=== PATIENT | male | born 1990 | race Caucasian/White ===

== ENCOUNTER 2016-09-04 12:32 | Emergency (ER) | payer SELFPAY ==
[~2016-09-04] VITALS: Ht 167.6 cm; Wt 85.0 kg
[~2016-09-04 12:32] MED LIST: IBUP800T23 PO
[2016-09-04 12:33] VITALS: BP 134/82; PULSE 88; RESP 20; TEMP 97.7; O2SAT 100
[2016-09-04] MEDS ORDERED: IBUPROFEN 800 MG TAB PO ONE (12:45)
[2016-09-04] MEDS ORDERED: METHOCARBAMOL 500 MG TAB PO ONE (12:45)
--- NOTE | 2016-09-04 12:45 | PD ---
HPI Chief Complaint: Skin Problem Time Seen by Provider: 12:45 Travel History International Travel<30 days: No Contact w/Intl Traveler<30days: No Traveled to known affect area: No History of Present Illness HPI 26-year-old male presents to the emergency department with 2 complaints. His first complaint is left hand pain and swelling since yesterday. He says he may have gotten bit by a bug. He doesn't know if he may have injured it somehow. 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 He denies paresthesias, loss of sensation. Reports decreased range of motion of the fingers and wrist secondary to swelling. Denies fever, chills, nausea, vomiting. Does not know if his up-to-date on his tetanus vaccination. His second complaint is left groin pain for the past few days. It is worse when he walks. He denies paresthesias, loss of sensation, decreased range of motion, decreased strength to the affected extremity. Has not taken any medication or drainage was to alleviate his symptoms. No known allergies. Denies significant past medical history. No other modifying factors or associated signs and symptoms. PFSH Past Medical History Depression: Yes Diminished Hearing: No Social History Alcohol Use: Yes Tobacco Use: Yes (quit 1 1/2 yrs ago smoked cigs 1 ppd for 4-5 yrs now ecigs) Substance Use: No Allergies-Medications (Allergen,Severity, Reaction): Coded Allergies: No Known Allergies (Verified , 03/27/15) Reported Meds & Prescriptions Reported Meds & Active Scripts Active Robaxin (Methocarbamol) 500 Mg Tab 500 Mg PO QID PRN Bactrim DS (Sulfamethoxazole-Trimethoprim) 800-160 Mg Tab 1 Tab PO BID 10 Days Keflex (Cephalexin) 500 Mg Cap 500 Mg PO Q6H 10 Days Ibuprofen 800 Mg Tab 800 Mg PO Q6HR PRN Reported Buprenorphine (Buprenorphine HCl) 8 Mg Subl 8 Mg SL BID Review of Systems Except as stated in HPI: all other systems reviewed are Neg Physical Exam Narrative GENERAL: Well-nourished, well-developed male patient, in no acute distress SKIN: Warm and dry. HEAD: Atraumatic. Normocephalic. EYES: Pupils equal and round. No scleral icterus. No injection or drainage. ENT: Mucosa pink and moist. Airway patent. NECK: Trachea midline. CARDIOVASCULAR: Regular rate. RESPIRATORY: No accessory muscle use. GASTROINTESTINAL: Flat. MUSCULOSKELETAL: Left hand and distal forearm is edematous and mildly erythematous; all fingers with decreased range of motion secondary to swelling; reproducible pain to the dorsal aspect of the hand; multiple small scratches noted to the dorsal aspect of the hand and forearm. Left upper extremity is supple and non-tense with 2+ radial pulse and sensory intact. Left hip is with full range of motion; no tenderness on abduction; no tenderness elicited on palpation to the left groin area. Left lower extremity supple and non-tense with 2+ pedal pulse and sensory intact and without erythema or edema. No obvious deformities. No clubbing. No cyanosis. No edema. NEUROLOGICAL: Awake and alert. Oriented 3. No obvious cranial nerve deficits. Motor grossly within normal limits. Normal speech. PSYCHIATRIC: Appropriate mood and affect; insight and judgment normal. Data Data Last Documented VS Vital Signs Date Time Temp Pulse Resp B/P Pulse Ox O2 Delivery O2 Flow Rate FiO2 09/04/16 12:33 97.7 88 20 134/82 100 Room Air Orders Hand, Complete ([id number]) (09/04/16 12:45) Ibuprofen (Motrin) (09/04/16 12:45) Methocarbamol (Robaxin) (09/04/16 12:45) Tetanus/Diphtheria Tox Adult (Tetanus/Di (09/04/16 13:00) MDM Medical Decision Making Medical Screen Exam Complete: Yes Emergency Medical Condition: Yes Medical Record Reviewed: Yes Differential Diagnosis Groin strain, cellulitis, hand fracture Narrative Course 26-year-old male physical exam consistent with possible cellulitis to the left hand/arm and left grown strain. Unknown injury. Tetanus updated in the ER. Ibuprofen and Robaxin administered in the ER. Left hand x-ray ordered. 1447: Left hand x-ray concludes Marked soft tissue swelling otherwise negative. Patient will be treated for suspected cellulitis. Ibuprofen, Robaxin , Bactrim, Keflex prescribed for home. Patient verbalizes understanding and agreement with treatment plan. Patient is medically cleared and stable for discharge. Discussed reasons to return to the emergency department. Instructed patient to follow up with primary care provider. Patient agrees with treatment plan. The patients vital signs are stable and the patient is stable for outpatient follow-up and treatment. Patient discharged home, stable and in no acute distress. Diagnosis Primary Impression: Cellulitis of left hand Additional Impression: Groin strain Qualified Code: S76.212A - Groin strain, left, initial encounter Referrals: Primary Care Physician Patient Instructions: Cellulitis (ED), General Instructions, Groin Strain (ED) Departure Forms: Tests/Procedures, Work Release Enter return to work date: Sep 07, 2016 Additional Instructions: Complete full course of antibiotics Warm compresses to the affected area Keep area clean and dry Ibuprofen or Tylenol as directed and as needed for pain and inflammation Follow-up with primary care provider Return to emergency department immediately with worsening of symptoms Med/Other Pt SpecificInfo: Prescription(s) given Scripts Methocarbamol (Robaxin)500 Mg [id number] Mg PO QID PRN (MUSCLE SPASM) #30 TAB Ref 0 Prov:Emma Eli 09/04/16 Sulfamethoxazole-Trimethoprim (Bactrim DS)800-160 Mg Tab1 Tab PO BID 10 Days Ref 0 Prov:Emma Eli 09/04/16 Cephalexin (Keflex)500 Mg [id number] Mg PO Q6H 10 Days Ref 0 Prov:Emma Eli 09/04/16 Ibuprofen 800 Mg [id number] Mg PO Q6HR PRN (PAIN) #30 TAB Ref 0 Prov:Emma Eli 09/04/16 Disposition: 01 DISCHARGE HOME Condition: Stable Emma Eli Sep 04, 2016 12:45
[2016-09-04] MEDS ORDERED: TETANUS/DIPHTHERIA TOXOID ADULT 0.5 ML VIAL IM ONE (13:00)
[2016-09-04] MEDS ORDERED: BUPR8SUB SL (13:12)
[2016-09-04] MEDS ORDERED: IBUP800T23 PO (13:18)
[2016-09-04] MEDS ORDERED: CEPH-460 PO (13:18)
[2016-09-04] MEDS ORDERED: BACT800T5 PO (13:18)
[2016-09-04] MEDS ORDERED: ROBA500T PO (13:18)
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
== END 2016-09-04 14:05 | disposition home or self-care (01) ==
LOC: NEPB 12:32
DX: L03.114 Cellulitis of left upper limb (principal); S76.212A Strain of adductor muscle, fascia and tendon of left thigh, initial encounter; Z23 Encounter for immunization; Z72.0 Tobacco use; X58.XXXA Exposure to other specified factors, initial encounter
CPT/HCPCS: 73130; 90471; 90714

== ENCOUNTER 2017-01-26 16:42 | Emergency (ER) | payer OTHER ==
[~2017-01-26] VITALS: Ht 167.6 cm; Wt 85.0 kg
[~2017-01-26 16:42] MED LIST changes: +BACT800T5 PO; +BUPR8SUB SL; +CEPH-460 PO; +ROBA500T PO
[2017-01-26 16:59] VITALS: BP 129/69; PULSE 87; RESP 14; O2SAT 98
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
[2017-01-26] MEDS ORDERED: DIPHTH/TETANUS/ACEL PERTUSSIS (BOOSTER) 0.5 ML VIAL/PFS IM ONE (17:30)
[2017-01-26] MEDS ORDERED: SODIUM CHLORIDE 0.9% FLUSH 10 ML FLUSH IVF PRN (17:30)
[2017-01-26 18:12] VITALS: O2SAT 100
[2017-01-26 18:19] LABS: AUTOMATED NEUTROPHIL # 3.2 TH/MM3 (1.8-7.7); BASOPHIL # 0.1 TH/MM3 (0-0.2); EOSINOPHIL # 0.5 TH/MM3 (0-0.4); EOSINOPHIL % 7.9 % (0.0-4.0); HEMATOCRIT 39.7 % (39.0-51.0); HEMO FLAGS DIFF FINAL; MEAN CELL VOLUME 85.6 FL (80.0-100.0); MEAN CORPUSCULAR HEMOGLOBIN 30.6 PG (27.0-34.0); MEAN CORPUSCULAR HGB CONC 35.7 % (32.0-36.0); MONO % 8.6 % (0.0-8.0); NEUT % 50.5 % (16.0-70.0); PLATELET COUNT 227 TH/MM3 (150-450); RED BLOOD COUNT 4.63 MIL/MM3 (4.50-5.90); RED CELL DISTRIBUTION WIDTH 13.5 % (11.6-17.2); WHITE BLOOD COUNT 6.4 TH/MM3 (4.0-11.0)
[2017-01-26 18:33] LABS: PROTHROMBIN TIME - PATIENT 11.6 SEC (9.8-11.6)
[2017-01-26 18:34] LABS: APTT (PATIENT) 34.3 SEC (24.3-30.1)
[2017-01-26 18:42] LABS: ALCOHOL LESS THAN 3 MG/DL (0-5); ANION GAP 4 MEQ/L (5-15); BICARBONATE 32.2 MEQ/L (21.0-32.0); BLOOD UREA NITROGEN 13 MG/DL (7-18); CHLORIDE 106 MEQ/L (98-107); GLOMERULAR FILTRATION RATE 87 ML/MIN (>89); POTASSIUM 3.9 MEQ/L (3.5-5.1); SODIUM (NA) 142 MEQ/L (136-145)
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
[2017-01-26] MEDS ORDERED: IOHEXOL 350 MG/ML 10 ML VIAL (for RAD DIAG) IV ONE (19:06)
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
[2017-01-26 23:18] VITALS: BP 113/63; PULSE 84; RESP 18; O2SAT 97
[2017-01-27] MEDS ORDERED: SUDO60TA2 PO (00:43)
[2017-01-27] MEDS ORDERED: AMOX500C PO (00:43)
[2017-01-27] MEDS ORDERED: AFRI0.052 EACH NARE (00:43)
== END 2017-01-27 07:06 | disposition home or self-care (01) ==
LOC: NEPD 16:42
DX: S02.2XXA Fracture of nasal bones, initial encounter for closed fracture (principal); S02.40DA Maxillary fracture, left side, initial encounter for closed fracture; S00.81XA Abrasion of other part of head, initial encounter; F41.9 Anxiety disorder, unspecified; F32.9 Major depressive disorder, single episode, unspecified; V43.52XA Car driver injured in collision with other type car in traffic accident, initial encounter; Z72.0 Tobacco use; Z23 Encounter for immunization
CPT/HCPCS: 70450; 70486; 71010; 71260; 72125; 72170; 74177; 80048; 80307; 85025; 85610; 85730; 86850; 86900; 86901; 90471; 90715; 99285; P9612; Q9967

== ENCOUNTER 2017-05-16 13:04 | Emergency (ER) | payer SELFPAY ==
[~2017-05-16] VITALS: Ht 167.6 cm; Wt 67.2 kg
[~2017-05-16 13:04] MED LIST changes: +AFRI0.052 EACH NARE; +AMOX500C PO; -BACT800T5 PO; -BUPR8SUB SL; -CEPH-460 PO; -IBUP800T23 PO; -ROBA500T PO; +SUDO60TA2 PO
[2017-05-16 13:41] VITALS: BP 128/54; PULSE 56; RESP 16; TEMP 98.6; O2SAT 98
[2017-05-16] MEDS ORDERED: CEPH-460 PO (15:11)
[2017-05-16] MEDS ORDERED: BACT800T5 PO (15:11)
--- NOTE | 2017-05-16 15:18 | PD ---
HPI Chief Complaint: Skin Problem Time Seen by Provider: 15:02 Travel History International Travel<30 days: No Contact w/Intl Traveler<30days: No Traveled to known affect area: No History of Present Illness HPI 26-year-old male presents to the emergency room for evaluation of 2 separate skin complaints on bilateral hands. They started about the same time, 4 days ago. Patient reports in his right third finger he cut himself on middle of the wound just kept getting larger and more painful. Last tetanus was 2 years ago. On his left fifth finger, he noticed a small area of swelling near the fingernail became more painful and swollen throughout the day. Denies fevers, chills, nausea, vomiting, and streaking. No chronic medical conditions or daily medications. PFSH Past Medical History Anxiety: Yes Depression: Yes Diminished Hearing: No Influenza Vaccination: No ?: Not Social History Alcohol Use: Yes Tobacco Use: Yes Substance Use: No Allergies-Medications (Allergen,Severity, Reaction): Coded Allergies: No Known Allergies (Verified Adverse Reaction, Unknown, 05/16/17) Reported Meds & Prescriptions Reported Meds & Active Scripts Active Bactrim DS (Sulfamethoxazole-Trimethoprim) 800-160 Mg Tab 1 Tab PO BID Keflex (Cephalexin) 500 Mg Capsule 500 Mg PO Q6H 10 Days Review of Systems Except as stated in HPI: all other systems reviewed are Neg Physical Exam Narrative GENERAL: Well-nourished, well-developed male in no acute distress. Afebrile. Ambulatory. SKIN: Focused skin assessment warm/dry. There is an indurated area in the left fifth finger over the lateral nailfold which measures about 2 cm in diameter. It is fluctuant but there is no pointing or drainage. There is a zone of inflammation around it but no lymphangitis. There is a impetiginized wound to the right third finger on the dorsal aspect with surrounding inflammation but no lymphangitis. HEAD: Normocephalic. EYES: No scleral icterus. No injection or drainage. NECK: Supple, trachea midline. No JVD or lymphadenopathy. CARDIOVASCULAR: Regular rate and rhythm without murmurs, gallops, or rubs. RESPIRATORY: Breath sounds equal bilaterally. No accessory muscle use. MUSCULOSKELETAL: No cyanosis, or edema. Full range motion of bilateral hands. Data Data Last Documented VS Vital Signs Date Time Temp Pulse Resp B/P (MAP) Pulse Ox O2 Delivery O2 Flow Rate FiO2 05/16/17 13:41 98.6 56 16 128/54 (78) 98 MDM Medical Decision Making Medical Screen Exam Complete: Yes Emergency Medical Condition: Yes Medical Record Reviewed: Yes Differential Diagnosis Abscess, paronychia, cellulitis, impetigo Narrative Course 26-year-old male presents to the emergency room for evaluation of 2 separate skin complaints was started at the same time. He has a paronychia of the left fifth finger and impetigo of the right third finger. No systemic signs of infection. No loss of range of motion. The paronychia was drained, see procedure for details. Patient discharged with Bactrim and Keflex and told to follow-up with the PCP return for worsening symptoms. He understands and agrees to plan. Procedures Procedure Narrative INCISION AND DRAINAGE OF ABSCESS: The area was prepped and was sterilely draped. A number 11 scalpel was used to make a 0.5 cm incision across the area of the abscess. The abscess was drained. Sterile dressing applied. Diagnosis Primary Impression: Paronychia of finger of left hand Additional Impression: Impetigo Referrals: Primary Care Physician Additional Instructions: Rest and drink plenty of fluids. Take Bactrim as directed, until gone. Take Keflex as directed, until gone. Return to the emergency room in 2 days to have packing removed. If it falls out before, this is okay. Follow up with a primary care physician. Return to emergency room for worsening symptoms, as discussed. Scripts Sulfamethoxazole-Trimethoprim (Bactrim DS) 800-160 Mg Tab 1 TAB PO BID for Infection, #20 TAB 0 Refills Prov: Tung Lanza MD 05/16/17 Cephalexin (Keflex) 500 Mg Capsule 500 MG PO Q6H for Infection for 10 Days, #40 CAP 0 Refills Prov: Tung Lanza MD 05/16/17 Disposition: 01 DISCHARGE HOME Condition: Stable Sana Nance May 16, 2017 15:18
== END 2017-05-16 15:45 | disposition home or self-care (01) ==
LOC: PHEFT 13:04
DX: L03.012 Cellulitis of left finger (principal); L01.00 Impetigo, unspecified
CPT/HCPCS: 10060

== ENCOUNTER 2018-04-22 22:46 | Inpatient (IN) ==
[2018-04-22] MEDS ORDERED: Morphine Sulfate Inj 2 MG/ML Vial ONE ×2 (22:55)
[2018-04-22] MEDS ORDERED: Diphtheria/Tetanus/Pertussis Vaccine Inj 0.5 ML Syringe IM ONE (22:55)
[2018-04-22] MEDS ORDERED: ceFAZolin 2 GM Premix Inj 2 GM/50 ML PIGGYBACK IV.SIG ONE (22:55)
[2018-04-22] MEDS ORDERED: Etomidate Inj 40 MG/20 ML Vial IV.PUSH ONE (22:57)
[2018-04-22] MEDS ORDERED: Propofol 1000 mg/100 ml Inj 1,000 MG/100 ML BOTTLE ONE (22:57)
[2018-04-22] MEDS ORDERED: NEED HT & WT OTHER SCH (23:00)
[2018-04-22 23:13] LABS: Baso # (Auto) 0.1 th/mm3 (0.0-0.2); Baso % (Auto) 0.7 % (0.0-2.0); Eos # (Auto) 0.4 th/mm3 (0.0-0.4); Eos % (Auto) 3.7 % (0.0-4.0); Hematocrit 45.4 % (39.0-51.0); Hemoglobin 15.6 gm/dL (13.0-17.0); Lymph # (Auto) 4.1 th/mm3 (1.0-4.8); Lymph % (Auto) 38.6 % (9.0-44.0); Mean Corpuscular HGB Conc 34.4 % (32.0-36.0); Mean Corpuscular Hemoglobin 30.7 pg (27.0-34.0); Mean Corpuscular Volume 89.2 fL (80.0-100.0); Mean Platelet Volume 8.9 fL (7.0-11.0); Mono # (Auto) 0.6 th/mm3 (0.0-0.9); Mono % (Auto) 5.8 % (0.0-8.0); Neut # (Auto) 5.5 th/mm3 (1.8-7.7); Neut % (Auto) 51.2 % (16.0-70.0); Platelet Count 333 th/mm3 (150-450); Red Blood Count 5.09 mil/mm3 (4.50-5.90); Red Cell Distribution Width 13.9 % (11.6-17.2); White Blood Count 10.7 th/mm3 (4.0-11.0)
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
[2018-04-22 23:26] LABS: Activated Partial Thrombo Time 27.8 sec (23.4-31.7); INR 1.1 Ratio
[2018-04-22] MEDS ORDERED: Bisacodyl 10 MG Supp RECTAL PRN (23:26)
[2018-04-22] MEDS ORDERED: Post-op Orders (for Pharmacy) OTHER ONE (23:26)
[2018-04-22] MEDS ORDERED: Naloxone Inj 0.4 MG/ML Vial IV.PUSH PRN (23:26)
[2018-04-22] MEDS ORDERED: Sod Chloride 0.9% Inj 1,000 ML IV.SIG SCH (23:30)
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
[2018-04-22] MEDS ORDERED: Pantoprazole Inj 40 MG Vial IV.PUSH SCH (23:45)
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
[2018-04-22] MEDS ORDERED: Succinylcholine Inj 200 MG/10 ML Vial ONE (23:49)
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
--- NOTE | 2018-04-22 23:56 | XR ---
EXAM DATE: 04/22/2018 11:37 PM EDT AGE/SEX: 89 years / Male INDICATIONS: Post intubation CLINICAL DATA: This is the patient's initial encounter. Patient reports that signs and symptoms have been present for 1 day and indicates a pain score of Nonresponsive. MEDICAL/SURGICAL HISTORY: Non-responsive. Non-responsive. COMPARISON: C, CHEST 1V SINGLE AP, 04/22/2018. . FINDINGS: Endotracheal tube is present in good position with tip 5 cm above the kelsey. Nasogastric tube descen ds into the stomach. Lungs remain symmetrically aerated and grossly clear. Cardiac contours are satis factory. CONCLUSION: Satisfactory support line and tube positioning. Electronically signed by: Neeraj Shah MD 04/22/2018 11:54 PM EDT
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
--- NOTE | 2018-04-23 00:35 | XR ---
EXAM DATE: 04/22/2018 11:41 PM EDT AGE/SEX: 89 years / Male INDICATIONS: Post reduction left hip CLINICAL DATA: This is the patient's initial encounter. Patient reports that signs and symptoms have been present for 1 day and indicates a pain score of Nonresponsive. MEDICAL/SURGICAL HISTORY: Non-responsive. Non-responsive. COMPARISON: [facility] [place], PELVIS AP 1V, 04/22/2018. . FINDINGS: Interval relocation of dislocated left hip. Otherwise stable appearance CONCLUSION: Left hip relocated Electronically signed by: Neeraj Shah MD 04/23/2018 12:34 AM EDT
[2018-04-23 00:37] LABS: ABG Base Excess 1.1 mmol/L (-2-2); ABG PCO2 46 mmHg (38-42); ABG PO2 139 mmHg (61-120)
[2018-04-23] MEDS: fentaNYL 10 mcg/mL Premix Drip 2,500 MCG/250 ML BAG IV.SIG PRN (00:46)
[2018-04-23] MEDS: Sod Chloride 0.9% Inj 1,000 ML IV.CONT SCH ×2 (00:46→06:26)
[2018-04-23 05:13] LABS: Baso # (Auto) 0.1 th/mm3 (0.0-0.2); Baso % (Auto) 0.5 % (0.0-2.0); Eos # (Auto) 0.2 th/mm3 (0.0-0.4); Eos % (Auto) 1.9 % (0.0-4.0); Hematocrit 41.3 % (39.0-51.0); Hemoglobin 14.7 gm/dL (13.0-17.0); Lymph # (Auto) 1.3 th/mm3 (1.0-4.8); Lymph % (Auto) 13.7 % (9.0-44.0); Mean Corpuscular HGB Conc 35.6 % (32.0-36.0); Mean Corpuscular Hemoglobin 31.2 pg (27.0-34.0); Mean Corpuscular Volume 87.4 fL (80.0-100.0); Mean Platelet Volume 8.9 fL (7.0-11.0); Mono # (Auto) 0.9 th/mm3 (0.0-0.9); Mono % (Auto) 10.1 % (0.0-8.0); Neut # (Auto) 6.9 th/mm3 (1.8-7.7); Neut % (Auto) 73.8 % (16.0-70.0); Platelet Count 248 th/mm3 (150-450); Red Blood Count 4.72 mil/mm3 (4.50-5.90); Red Cell Distribution Width 13.7 % (11.6-17.2); White Blood Count 9.3 th/mm3 (4.0-11.0)
[2018-04-23] MEDS: Propofol 1000 mg/100 ml Inj 1,000 MG/100 ML BOTTLE IV.CONT PRN ×2 (05:23→17:05)
[2018-04-23 05:36] LABS: Calcium 8.6 mg/dL (8.5-10.1); Carbon Dioxide 29.8 meq/L (21.0-32.0); Potassium 3.7 meq/L (3.5-5.1)
[2018-04-23 06:15] LABS: ABG Base Excess 1.2 mmol/L (-2-2); ABG PCO2 44 mmHg (38-42); ABG PO2 186 mmHg (61-120)
[2018-04-23] MEDS ORDERED: Lidocaine 1%/Epinephrine 1:100,000 Inj 30 ML Vial ONE (07:59)
[2018-04-23] MEDS ORDERED: Thrombin Topical Soln 5,000 UNIT Vial TOPICAL ONE (07:59)
[2018-04-23] MEDS ORDERED: Gelatin Size 100 Topical Foam ONE (08:00)
[2018-04-23] MEDS ORDERED: ceFAZolin 1 GM Premix Inj 1 GM/50 ML FROZ.PIGGY IV.SIG ONE (08:46)
[2018-04-23] MEDS ORDERED: Senna/Docusate Sodium 8.6/50 MG Tablet PO SCH (09:00)
[2018-04-23] MEDS ORDERED: Bisacodyl 10 MG Supp RECTAL PRN (10:00)
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
[2018-04-23] MEDS ORDERED: Morphine Sulfate Inj 2 MG/ML Vial IV.PUSH PRN (11:00)
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
[2018-04-23] MEDS: Oral Hygiene Kit OROPHARYNG SCH ×2 (12:44→17:45)
[2018-04-23] MEDS: Chlorhexidine 0.12% Oral Kit 15 ML UDC OROPHARYNG SCH ×2 (12:44→22:32)
[2018-04-23] MEDS: ceFAZolin 2 GM Premix Inj 2 GM/50 ML PIGGYBACK IV.SIG SCH (17:45)
[2018-04-23] MEDS: Senna/Docusate Sodium 8.6/50 MG Tablet PO SCH (21:09)
[2018-04-24] MEDS: Oral Hygiene Kit OROPHARYNG SCH ×2 (00:20→06:56)
[2018-04-24] MEDS: fentaNYL 10 mcg/mL Premix Drip 2,500 MCG/250 ML BAG IV.SIG PRN (00:25)
[2018-04-24] MEDS: ceFAZolin 2 GM Premix Inj 2 GM/50 ML PIGGYBACK IV.SIG SCH ×2 (02:00→08:37)
[2018-04-24] MEDS: Propofol 1000 mg/100 ml Inj 1,000 MG/100 ML BOTTLE IV.CONT PRN (02:43)
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
[2018-04-24 05:20] LABS: Calcium 8.5 mg/dL (8.5-10.1); Carbon Dioxide 24.7 meq/L (21.0-32.0); Potassium 4.2 meq/L (3.5-5.1)
[2018-04-24 05:43] LABS: ABG Base Excess 0.8 mmol/L (-2-2); ABG PCO2 44 mmHg (38-42); ABG PO2 156 mmHg (61-120)
[2018-04-24 07:46] LABS: Baso % (Auto) 0.4 % (0.0-2.0); Eos # (Auto) 0.1 th/mm3 (0.0-0.4); Eos % (Auto) 1.4 % (0.0-4.0); Hematocrit 38.8 % (39.0-51.0); Hemoglobin 13.4 gm/dL (13.0-17.0); Lymph # (Auto) 1.7 th/mm3 (1.0-4.8); Lymph % (Auto) 23.1 % (9.0-44.0); Mean Corpuscular HGB Conc 34.6 % (32.0-36.0); Mean Corpuscular Hemoglobin 31.5 pg (27.0-34.0); Mean Corpuscular Volume 90.9 fL (80.0-100.0); Mean Platelet Volume 9.2 fL (7.0-11.0); Mono # (Auto) 0.8 th/mm3 (0.0-0.9); Mono % (Auto) 10.7 % (0.0-8.0); Neut # (Auto) 4.9 th/mm3 (1.8-7.7); Neut % (Auto) 64.4 % (16.0-70.0); Platelet Count 237 th/mm3 (150-450); Red Blood Count 4.27 mil/mm3 (4.50-5.90); Red Cell Distribution Width 14.1 % (11.6-17.2); White Blood Count 7.5 th/mm3 (4.0-11.0)
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
[2018-04-24] MEDS: Senna/Docusate Sodium 8.6/50 MG Tablet PO SCH ×2 (08:38→20:09)
[2018-04-24] MEDS: Chlorhexidine 0.12% Oral Kit 15 ML UDC OROPHARYNG SCH (08:38)
--- NOTE | 2018-04-24 09:21 | P.PNNS ---
Subjective Interval history: Patient went to the OR yesterday for debridement and elevation of open skull fracture. No acute events overnight. When sedation is held, he becomes agitated. Physical Exam Vital signs: Vital Signs 04/23/18 10:39 04/23/18 10:48 04/23/18 11:00 Temperature Pulse Rate 96 H 101 H Respiratory Rate 15 Blood Pressure Pulse Oximetry 100 100 04/23/18 11:21 04/23/18 11:30 04/23/18 11:45 Temperature Pulse Rate 102 H 104 H 108 H Respiratory Rate 112 H 15 14 Blood Pressure 128/79 127/76 131/76 Pulse Oximetry 100 100 100 04/23/18 12:00 04/23/18 12:15 04/23/18 12:30 Temperature 100.2 F H Pulse Rate 107 H 107 H 104 H Respiratory Rate 14 14 21 Blood Pressure 134/76 126/76 123/75 Pulse Oximetry 100 100 100 04/23/18 12:45 04/23/18 13:00 04/23/18 13:14 Temperature Pulse Rate 106 H 107 H Respiratory Rate 14 14 14 Blood Pressure 126/76 122/76 Pulse Oximetry 100 100 100 04/23/18 13:15 04/23/18 13:30 04/23/18 13:45 Temperature Pulse Rate 108 H 109 H 110 H Respiratory Rate 14 15 21 Blood Pressure 118/76 116/72 122/74 Pulse Oximetry 100 100 100 04/23/18 14:00 04/23/18 14:15 04/23/18 14:30 Temperature Pulse Rate 110 H 110 H 111 H Respiratory Rate 42 H 44 H 36 H Blood Pressure 122/74 123/76 124/72 Pulse Oximetry 100 100 100 04/23/18 14:45 04/23/18 15:00 04/23/18 15:15 Temperature Pulse Rate 110 H 111 H 112 H Respiratory Rate 34 H 31 H 26 H Blood Pressure 122/71 124/73 123/74 Pulse Oximetry 100 100 100 04/23/18 15:30 04/23/18 15:45 04/23/18 16:00 Temperature 101.1 F H Pulse Rate 114 H 114 H 114 H Respiratory Rate 31 H 28 H 35 H Blood Pressure 123/74 120/73 125/72 Pulse Oximetry 100 100 100 04/23/18 16:15 04/23/18 16:30 04/23/18 16:45 Temperature Pulse Rate 116 H 117 H 113 H Respiratory Rate 15 21 15 Blood Pressure 124/74 125/79 124/80 Pulse Oximetry 100 100 100 04/23/18 17:00 04/23/18 17:11 04/23/18 17:15 Temperature Pulse Rate 116 H 116 H 117 H Respiratory Rate 14 14 14 Blood Pressure 128/79 128/84 Pulse Oximetry 100 100 100 04/23/18 17:30 04/23/18 17:45 04/23/18 18:00 Temperature Pulse Rate 117 H 117 H 118 H Respiratory Rate 15 15 15 Blood Pressure 130/78 134/73 130/74 Pulse Oximetry 100 100 100 04/23/18 18:15 04/23/18 18:30 04/23/18 18:45 Temperature Pulse Rate 120 H 117 H 118 H Respiratory Rate 18 15 14 Blood Pressure 135/80 124/78 123/74 Pulse Oximetry 100 100 99 04/23/18 19:00 04/23/18 19:15 04/23/18 19:30 Temperature Pulse Rate 119 H 118 H 118 H Respiratory Rate 15 15 15 Blood Pressure 126/80 125/80 130/74 Pulse Oximetry 98 98 98 04/23/18 19:45 04/23/18 20:00 04/23/18 20:15 Temperature 101 F H Pulse Rate 117 H 117 H 115 H Respiratory Rate 15 15 113 H Blood Pressure 123/66 122/67 125/73 Pulse Oximetry 98 99 100 04/23/18 20:30 04/23/18 20:45 04/23/18 21:00 Temperature Pulse Rate 113 H 113 H 113 H Respiratory Rate 121 H 105 H 117 H Blood Pressure 127/78 124/74 120/76 Pulse Oximetry 100 100 100 04/23/18 21:15 04/23/18 21:30 04/23/18 21:45 Temperature Pulse Rate 112 H 110 H 108 H Respiratory Rate 114 H 113 H 122 H Blood Pressure 122/74 126/76 111/76 Pulse Oximetry 100 100 100 04/23/18 22:00 04/23/18 22:15 04/23/18 22:29 Temperature Pulse Rate 112 H 110 H 117 H Respiratory Rate 132 H 116 H Blood Pressure 119/77 123/74 Pulse Oximetry 100 100 04/23/18 22:30 04/23/18 22:45 04/23/18 23:00 Temperature Pulse Rate 110 H 110 H 109 H Respiratory Rate 120 H 121 H 117 H Blood Pressure 123/76 123/74 122/74 Pulse Oximetry 100 100 100 04/23/18 23:15 04/23/18 23:30 04/23/18 23:45 Temperature Pulse Rate 109 H 109 H 109 H Respiratory Rate 122 H 122 H 111 H Blood Pressure 122/75 116/75 119/74 Pulse Oximetry 100 100 100 04/24/18 00:00 04/24/18 00:15 04/24/18 00:18 Temperature 100.6 F H Pulse Rate 108 H 108 H Respiratory Rate 115 H 123 H 14 Blood Pressure 124/76 124/76 Pulse Oximetry 100 100 100 04/24/18 00:30 04/24/18 00:45 04/24/18 01:00 EST Temperature Pulse Rate 108 H 107 H 105 H Respiratory Rate 124 H 116 H 112 H Blood Pressure 124/72 122/72 Pulse Oximetry 100 100 100 04/24/18 01:04 EST 04/24/18 02:00 04/24/18 02:04 Temperature Pulse Rate 109 H 107 H Respiratory Rate 77 H 71 H Blood Pressure 117/73 123/78 Pulse Oximetry 100 100 04/24/18 03:00 04/24/18 03:04 04/24/18 03:13 Temperature Pulse Rate 106 H 108 H 107 H Respiratory Rate 86 H 96 H 14 Blood Pressure 125/81 Pulse Oximetry 100 100 100 04/24/18 04:00 04/24/18 04:04 04/24/18 05:00 Temperature 100.3 F H Pulse Rate 110 H 109 H 107 H Respiratory Rate 90 H 84 H 101 H Blood Pressure 134/78 Pulse Oximetry 100 100 100 04/24/18 05:04 04/24/18 06:00 04/24/18 06:04 Temperature Pulse Rate 110 H 105 H 105 H Respiratory Rate 84 H 77 H 75 H Blood Pressure 134/82 130/82 Pulse Oximetry 100 100 100 04/24/18 08:50 04/24/18 08:56 Temperature Pulse Rate 104 H Respiratory Rate 14 15 Blood Pressure Pulse Oximetry 100 Intake & Output 04/23/18 04/24/18 04/24/18 19:59 06:59 18:59 Intake Total Output Total Balance Intake: IV NS + KCl 20 mEq Inj 1,000 ML @ 60 mls/hr IV.CONT .[id number] [facility] Rx#:[id number] Diprivan 1000 mg/100 ml Inj 1, 000 mg In 100 ml @ 5 MCG/KG/MIN 2.049 mls/hr IV.CONT TITRATE PRN Rx#:[id number] Ancef 2 GM Premix Inj 2 gm In 50 ml @ 100 mls/hr IV.SIG Q8H [facility] Rx#:[id number] fentaNYL 10 mcg/mL Premix Drip 2,500 mcg In 250 ml @ 50 MCG/HR 5 mls/hr IV.SIG TITRATE PRN Rx #:[id number] Keppra Inj 500 MG In NS Inj 100 ML @ 400 mls/hr IV.SIG Q12H [facility] Rx#:[id number] Anesthesia Amount Output: Estimated Blood Loss Urine Amount (Catheter) Indwelling Urethral Catheter Gastric Drainage Orogastric Tube Wound Drainage # 1 Left Occipital ANYI Drain - Routine Neurological Exam Intubated, sedated. Sedation held recently per RNs, and he became agitated, moving all extremities and combative. - Urinary Catheter Management Indwelling Urethral Catheter Cath placed during this visit: yes Reason for continuing: Hourly intake/output Insertion date: 04/23/18 Insertion time: 00:00 Assessment and Plan - Plan I have reviewed the clinical and radiological findings Chest X-Ray 04/22/18 22:48 CONCLUSION: Satisfactory trauma chest appearance. Abdomen/Pelvis CT 04/22/18 22:51 CONCLUSION: 1. No acute soft tissue injuries in the abdomen or pelvis. 2. Mild bony injuries as described. Cervical Spine CT 04/22/18 22:51 CONCLUSION: Mildly displaced fractures of the right transverse processes of C7, T1 and T2 Chest CT 04/22/18 22:51 CONCLUSION: 1. No acute intrathoracic injury. 2. Tiny bilateral lung nodules which can be followed if clinically appropriate. Head CT 04/22/18 22:51 CONCLUSION: 1. Left occipital skull fracture. 2. No gross findings of acute intracranial injury at present. . Neuro: neuro checks in a serial fashion. Concussion. Intubated for airway protection and severe agitation. ANYI drain put out 60 mL, will leave today. Left occipital skull fracture. No underlying hematoma. Prophylactic antibiotics right transverse processes of C7. Maintain bracing with cervical collar T1 and T2 fractures. Nonoperative, Narcotic analgesics for pain control Hip dislocation. Mgmt per Ortho. Pulmonary: aggressive pulmonary toilette, nasotracheal suction, and breathing treatments with nebulizers. Daily PT and OT Renal: Continue to monitor closely urine output, BUN and creatinine Endocrine: Continue to Monitor serial Acu checks and SSI as needed in detail ID continue to monitor for signs of infection Continue Protonix for stress ulcer prophylaxis Continue Mejia hose and SCD's for DVT prophylaxis Further recommendations will be provided depending on the patient's clinical evaluation and follow up studies.
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
[2018-04-24] MEDS: Ketorolac Inj 30 MG/ML (IVP) Vial IV.PUSH SCH ×2 (13:31→20:09)
[2018-04-24] MEDS: levETIRAcetam 500 MG Tablet PO SCH (20:09)
[2018-04-25] MEDS: Ketorolac Inj 30 MG/ML (IVP) Vial IV.PUSH SCH ×4 (01:42→19:43)
[2018-04-25] MEDS: Morphine Sulfate Inj 2 MG/ML Vial IV.PUSH PRN (05:43)
[2018-04-25] MEDS: Senna/Docusate Sodium 8.6/50 MG Tablet PO SCH ×2 (08:26→22:08)
[2018-04-25] MEDS: levETIRAcetam 500 MG Tablet PO SCH ×2 (08:26→22:08)
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
[2018-04-25] MEDS ORDERED: Acetaminophen 325 MG Tablet PO PRN (09:45)
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
[2018-04-25 14:52] LABS: Baso % (Auto) 0.5 % (0.0-2.0); Eos # (Auto) 0.4 th/mm3 (0.0-0.4); Eos % (Auto) 5.6 % (0.0-4.0); Hematocrit 28.5 % (39.0-51.0); Hemoglobin 10.3 gm/dL (13.0-17.0); Lymph # (Auto) 1.3 th/mm3 (1.0-4.8); Lymph % (Auto) 18.1 % (9.0-44.0); Mean Corpuscular Hemoglobin 32.5 pg (27.0-34.0); Mean Corpuscular Volume 89.5 fL (80.0-100.0); Mean Platelet Volume 8.9 fL (7.0-11.0); Mono # (Auto) 0.8 th/mm3 (0.0-0.9); Mono % (Auto) 11.3 % (0.0-8.0); Neut # (Auto) 4.7 th/mm3 (1.8-7.7); Neut % (Auto) 64.5 % (16.0-70.0); Platelet Count 173 th/mm3 (150-450); Red Blood Count 3.18 mil/mm3 (4.50-5.90); Red Cell Distribution Width 13.7 % (11.6-17.2); White Blood Count 7.2 th/mm3 (4.0-11.0)
[2018-04-25 14:57] LABS: Mean Corpuscular HGB Conc 36.3 % (32.0-36.0)
[2018-04-25 15:12] LABS: Anion Gap 6 meq/L (5-15); Blood Urea Nitrogen 11 mg/dL (7-18); Calcium 8.2 mg/dL (8.5-10.1); Carbon Dioxide 27.3 meq/L (21.0-32.0); Chloride 105 meq/L (98-107); Glomerular Filtration Rate Greater Than 89 mL/min (>89); Glucose,Random 136 mg/dL (74-106); Sodium 138 meq/L (136-145)
[2018-04-25 15:17] LABS: Platelet Estimate Normal (Normal); Platelet Morphology Normal (Normal)
--- NOTE | 2018-04-25 17:03 | P.PNNS ---
Subjective Interval history: awake, alert, moving all four extremities well, reports of left surgical pain Physical Exam Vital signs: Vital Signs 04/24/18 17:00 04/24/18 17:59 04/24/18 18:00 Temperature Pulse Rate 93 H 97 H 95 H Respiratory Rate 20 24 Blood Pressure 122/69 129/61 Pulse Oximetry 97 98 04/24/18 19:00 04/24/18 20:00 04/24/18 20:53 Temperature 100 F H Pulse Rate 102 H 101 H 96 H Respiratory Rate 93 H 85 H 20 Blood Pressure 127/65 135/66 Pulse Oximetry 95 95 04/24/18 21:00 04/24/18 21:28 04/24/18 22:00 Temperature Pulse Rate 109 H 99 H 89 Respiratory Rate 72 H 76 H 79 H Blood Pressure 123/59 L 114/59 L Pulse Oximetry 74 L 96 04/24/18 23:00 04/25/18 00:00 04/25/18 01:00 Temperature 99.6 F Pulse Rate 95 H 88 92 H Respiratory Rate 81 H 64 H 70 H Blood Pressure 112/66 113/65 113/62 Pulse Oximetry 99 100 04/25/18 02:00 04/25/18 03:00 04/25/18 04:00 Temperature 99.7 F H Pulse Rate 90 93 H 94 H Respiratory Rate 86 H 88 H 88 H Blood Pressure 110/65 111/66 Pulse Oximetry 97 97 95 04/25/18 06:00 04/25/18 07:00 04/25/18 08:00 Temperature 97.9 F Pulse Rate 95 H 95 H 99 H Respiratory Rate 97 H 89 H Blood Pressure 115/65 Pulse Oximetry 04/25/18 08:29 04/25/18 09:00 04/25/18 10:38 Temperature Pulse Rate 104 H 90 79 Respiratory Rate 102 H 85 H 22 Blood Pressure 119/58 L Pulse Oximetry 94 L 04/25/18 11:58 04/25/18 12:00 04/25/18 13:00 Temperature 98.1 F Pulse Rate 99 H 95 H 115 H Respiratory Rate 91 H 101 H 74 H Blood Pressure 115/64 Pulse Oximetry 98 97 96 04/25/18 14:00 04/25/18 15:00 04/25/18 16:00 Temperature 98.2 F Pulse Rate 106 H 100 H 91 H Respiratory Rate 72 H 88 H 76 H Blood Pressure 119/59 L Pulse Oximetry 98 94 L 97 Intake & Output 04/24/18 04/25/18 04/25/18 18:59 06:59 18:59 Intake Total 2325 / 2325 480 / 480 Output Total 500 / 500 1100 / 1100 Balance 1825 / 1825 -620 / -620 Intake: IV 885 / 885 NS + KCl 20 mEq Inj 1,000 ML @ 600 / 600 60 mls/hr IV.CONT .[id number] CHERRY Rx#:[id number] Diprivan 1000 mg/100 ml Inj 1, 80 / 80 000 mg In 100 ml @ 5 MCG/KG/MIN 2.049 mls/hr IV.CONT TITRATE PRN Rx#:[id number] Ancef 2 GM Premix Inj 2 gm In 50 / 50 50 ml @ 100 mls/hr IV.SIG Q8H CHERRY Rx#:[id number] fentaNYL 10 mcg/mL Premix Drip 50 / 50 2,500 mcg In 250 ml @ 50 MCG/HR 5 mls/hr IV.SIG TITRATE PRN Rx #:[id number] Keppra Inj 500 MG In NS Inj 100 105 / 105 ML @ 400 mls/hr IV.SIG Q12H CHERRY Rx#:[id number] Oral 1440 / 1440 480 / 480 Output: Urine 1100 / 1100 Urine Amount (Catheter) 500 / 500 Indwelling Urethral Catheter 500 / 500 Wound Drainage 0 / 0 # 1 Left Occipital ANYI Drain 0 / 0 Narrative: awake, alert, tearful scalp wound clean and dry ANYI drain with very minimal drainage pupils equal moving all four extremities symmetrically - Urinary Catheter Management Indwelling Urethral Catheter Cath placed during this visit: yes, but has since been removed by the nurse Reason for continuing: Decision to DC catheter Insertion date: 04/23/18 Insertion time: 00:00 Removal date: 04/24/18 Removal time: 14:00 Assessment and Plan - Plan POD 2 Left occipital craniotomy, debridement of open, compounded skull fracture , repair of dura matter Cervical Spine CT 04/22/18 22:51 CONCLUSION: Mildly displaced fractures of the right transverse processes of C7, T1 and T2 Head CT 04/22/18 22:51 CONCLUSION: 1. Left occipital skull fracture. 2. No gross findings of acute intracranial injury at present. Neuro: neuro checks in a serial fashion. ANYI drain 0 mL, removed, steri-strips placed. sutures removal 10-14 days postop, pt october f/u Dr. Sapp office for this right transverse processes of C7. Maintain bracing with cervical collar T1 and T2 fractures. Nonoperative, Narcotic analgesics for pain control Hip dislocation. Mgmt per Ortho. PT and OT Continue Protonix for stress ulcer prophylaxis Continue Mejia hose and SCD's for DVT prophylaxis
[2018-04-26] MEDS: Morphine Sulfate Inj 2 MG/ML Vial IV.PUSH PRN (01:06)
[2018-04-26] MEDS: Ketorolac Inj 30 MG/ML (IVP) Vial IV.PUSH SCH ×4 (01:07→21:03)
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
[2018-04-26] MEDS: Senna/Docusate Sodium 8.6/50 MG Tablet PO SCH ×2 (08:45→22:38)
[2018-04-26] MEDS: levETIRAcetam 500 MG Tablet PO SCH ×2 (08:45→22:38)
[2018-04-26 10:57] LABS: Baso % (Auto) 0.6 % (0.0-2.0); Eos # (Auto) 0.3 th/mm3 (0.0-0.4); Eos % (Auto) 4.9 % (0.0-4.0); Hematocrit 28.1 % (39.0-51.0); Hemoglobin 9.9 gm/dL (13.0-17.0); Lymph # (Auto) 0.9 th/mm3 (1.0-4.8); Lymph % (Auto) 17.9 % (9.0-44.0); Mean Corpuscular HGB Conc 35.2 % (32.0-36.0); Mean Corpuscular Hemoglobin 31.3 pg (27.0-34.0); Mean Corpuscular Volume 88.8 fL (80.0-100.0); Mean Platelet Volume 9.1 fL (7.0-11.0); Mono # (Auto) 0.5 th/mm3 (0.0-0.9); Mono % (Auto) 9.7 % (0.0-8.0); Neut # (Auto) 3.5 th/mm3 (1.8-7.7); Neut % (Auto) 66.9 % (16.0-70.0); Platelet Count 188 th/mm3 (150-450); Red Blood Count 3.16 mil/mm3 (4.50-5.90); Red Cell Distribution Width 13.6 % (11.6-17.2); White Blood Count 5.2 th/mm3 (4.0-11.0)
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
[2018-04-26 11:11] LABS: Anion Gap 8 meq/L (5-15); Blood Urea Nitrogen 11 mg/dL (7-18); Calcium 8.7 mg/dL (8.5-10.1); Carbon Dioxide 28.7 meq/L (21.0-32.0); Chloride 105 meq/L (98-107); Glomerular Filtration Rate Greater Than 89 mL/min (>89); Glucose,Random 97 mg/dL (74-106); Potassium 3.9 meq/L (3.5-5.1); Sodium 142 meq/L (136-145)
--- NOTE | 2018-04-26 13:40 | P.PNNS ---
Subjective Interval history: sleeping comfortably, reports to be doing ok, painful when he tries to move. Physical Exam Vital signs: Vital Signs 04/25/18 14:00 04/25/18 15:00 04/25/18 16:00 Temperature 98.2 F Pulse Rate 106 H 100 H 91 H Respiratory Rate 72 H 88 H 76 H Blood Pressure 119/59 L Pulse Oximetry 98 94 L 97 04/25/18 16:10 04/25/18 17:00 04/25/18 17:54 Temperature Pulse Rate 84 84 85 Respiratory Rate 91 H 63 H 16 Blood Pressure 119/59 L Pulse Oximetry 04/25/18 18:00 04/25/18 19:00 04/25/18 20:00 Temperature 98.7 F Pulse Rate 81 97 H 106 H Respiratory Rate 95 H 35 H 45 H Blood Pressure Pulse Oximetry 98 04/25/18 21:00 04/25/18 21:12 04/25/18 22:00 Temperature Pulse Rate 104 H 90 90 Respiratory Rate 40 H 24 45 H Blood Pressure Pulse Oximetry 04/26/18 00:00 04/26/18 01:08 04/26/18 01:16 Temperature 98.6 F Pulse Rate 91 H Respiratory Rate 18 18 18 Blood Pressure 110/57 L Pulse Oximetry 97 04/26/18 01:37 04/26/18 04:00 04/26/18 05:03 Temperature 97.7 F Pulse Rate 88 Respiratory Rate 18 18 18 Blood Pressure 125/63 Pulse Oximetry 96 04/26/18 08:00 Temperature 98.4 F Pulse Rate 85 Respiratory Rate 20 Blood Pressure 120/73 Pulse Oximetry 98 Intake & Output 04/25/18 04/26/18 04/26/18 18:59 06:59 18:59 Intake Total 320 / 320 Output Total 1800 / 1800 Balance -1800 / -1800 320 / 320 Weight 70.3 kg Intake: Oral 320 / 320 Output: Urine 1800 / 1800 Stool 0 / 0 Wound Drainage 0 / 0 # 1 Left Occipital ANYI Drain 0 / 0 Other: # Voids 2 Narrative: awakens, alert follows commands NAD painful when he tries to move left leg in ortho brace, moves all four extremities scalp wound clean and dry - Urinary Catheter Management Indwelling Urethral Catheter Cath placed during this visit: yes, but has since been removed by the nurse Reason for continuing: Decision to DC catheter Insertion date: 04/23/18 Insertion time: 00:00 Removal date: 04/24/18 Removal time: 14:00 Assessment and Plan - Plan POD 3 Left occipital craniotomy, debridement of open, compounded skull fracture , repair of dura matter Cervical Spine CT 04/22/18 22:51 CONCLUSION: Mildly displaced fractures of the right transverse processes of C7, T1 and T2 Head CT 04/22/18 22:51 CONCLUSION: 1. Left occipital skull fracture. 2. No gross findings of acute intracranial injury at present. Neuro: neuro checks in a serial fashion. stable sutures removal 10-14 days postop, pt may f/u Dr. Sapp office for this right transverse processes of C7. Maintain bracing with cervical collar T1 and T2 fractures. Nonoperative, Narcotic analgesics for pain control Hip dislocation. Mgmt per Ortho. PT and OT Continue Protonix for stress ulcer prophylaxis Continue Mejia hose and SCD's for DVT prophylaxis
[2018-04-26] MEDS: Enoxaparin Inj 30 MG/0.3 ML Syringe SQ SCH (22:37)
[2018-04-27] MEDS: Ketorolac Inj 30 MG/ML (IVP) Vial IV.PUSH SCH ×2 (01:25→08:25)
[2018-04-27] MEDS: levETIRAcetam 500 MG Tablet PO SCH (08:24)
[2018-04-27] MEDS: Enoxaparin Inj 30 MG/0.3 ML Syringe SQ SCH (08:24)
[2018-04-27] MEDS: Senna/Docusate Sodium 8.6/50 MG Tablet PO SCH (08:24)
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
--- NOTE | 2018-04-27 14:14 | MB ---
cc: Hernandez Soni DDS DATE: 04/23/2018 HISTORY OF PRESENT ILLNESS: Mr. Beckford called regarding a nasal and right zygomatic arch fracture. On evaluation, he has nondisplaced fractures, nasal bones at the nasal frontal area. He has no displacement of them. His right zygomatic arch is nondisplaced as well with no difficulties and no surgical intervention necessary as well. The rest of his facial exam was negative. He can follow up on an outpatient basis if he has any issues regarding his concerns. Hernandez Soni DDS CJS/ct , 01:46 PM , 01:50 PM
--- NOTE | 2018-04-27 15:17 | P.PNNS ---
Subjective Interval history: c/o generalized pain all over his body, requesting stronger pain medications Physical Exam Vital signs: Vital Signs 04/26/18 16:00 04/26/18 20:00 04/26/18 21:40 Temperature 97.7 F 98.6 F Pulse Rate 91 H 88 96 H Respiratory Rate 20 20 16 Blood Pressure 116/66 129/73 Pulse Oximetry 99 99 04/27/18 00:00 04/27/18 03:18 04/27/18 04:00 Temperature 97.5 F L 97.2 F L Pulse Rate 82 87 80 Respiratory Rate 20 16 20 Blood Pressure 111/56 L 121/71 Pulse Oximetry 97 98 04/27/18 08:00 04/27/18 12:00 Temperature 97.6 F 98.5 F Pulse Rate 84 83 Respiratory Rate 16 18 Blood Pressure 107/67 117/71 Pulse Oximetry 98 98 Intake & Output 04/26/18 04/27/18 04/27/18 18:59 06:59 18:59 Intake Total 360 / 360 600 / 600 Balance 360 / 360 600 / 600 Weight 70.5 kg Intake: Oral 360 / 360 600 / 600 Other: # Voids 2 3 # Bowel Movements 0 Narrative: scalp incision healing well, no redness, drainage pupils equal sitting up in recliner chair NAD when he tries to move c/o of generalized pain - Urinary Catheter Management Indwelling Urethral Catheter Cath placed during this visit: yes, but has since been removed by the nurse Reason for continuing: Decision to DC catheter Insertion date: 04/23/18 Insertion time: 00:00 Removal date: 04/24/18 Removal time: 14:00 Assessment and Plan - Plan POD 4 Left occipital craniotomy, debridement of open, compounded skull fracture , repair of dura matter (04/23/18) Cervical Spine CT 04/22/18 22:51 CONCLUSION: Mildly displaced fractures of the right transverse processes of C7, T1 and T2 Head CT 04/22/18 22:51 CONCLUSION: 1. Left occipital skull fracture. 2. No gross findings of acute intracranial injury at present. Neuro: neuro checks in a serial fashion. remove scalp sutures 04/30/18 right transverse processes of C7, Dr. Sapp cleared off cervical collar T1 and T2 fractures. Nonoperative, Narcotic analgesics for pain control PT and OT Continue Protonix for stress ulcer prophylaxis Continue Mejia hose and SCD's for DVT prophylaxis Dr. Sapp deferring pain medications to primary
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
== END 2018-04-27 18:26 | disposition home or self-care (01) ==
LOC: NEPI 22:46 → NEDA 23:17 → EDBD 23:17 → MERGE 23:17 → N03 23:40 → N06 04-25 22:56
PROVIDERS: ADMIT Surgery; ATTEND Surgery